=== PATIENT | female | born 1950 | race Caucasian/White ===

== ENCOUNTER 2019-05-07 12:28 | Day surgery (SDC) | payer MEDICARE, OTHER ==
[~2019-05-07] VITALS: Ht 162.6 cm; Wt 105.0 kg
[2019-05-07] MEDS ORDERED: LEVOXYL0.2 MG PO (13:09)
[2019-05-07] MEDS ORDERED: SYNTHROID 0.0.025 MG PO (13:09)
[2019-05-07] MEDS ORDERED: PLAQUENIL 200M200 MG PO (13:10)
[2019-05-07] MEDS ORDERED: B-12 500 MCG PO (13:11)
[2019-05-07] MEDS ORDERED: PREMARIN VAG42.5 GM VG (13:11)
[2019-05-07] MEDS ORDERED: ATIVAN 0.50.5 MG/TAB PO (13:12)
[2019-05-07] MEDS ORDERED: FOLIC ACID 11 MG/TA1 PO (13:12)
[2019-05-07] MEDS ORDERED: ASPIRIN E.C. 8181 MG PO (13:13)
[2019-05-07] MEDS ORDERED: FLEXERIL 1010 MG/TAB PO (13:13)
[2019-05-07] MEDS ORDERED: AZULFIDINE500 MG/TAB PO (13:14)
[2019-05-07] MEDS ORDERED: ZOFRAN 4MG T4 MG/TAB PO (13:15)
[2019-05-07] MEDS ORDERED: CALCIUM 600600 M2 PO (13:15)
[2019-05-07] MEDS ORDERED: CELEBREX 200MG200 MG PO (13:16)
[2019-05-07] MEDS ORDERED: HYZAAR 25 MG-101 TAB PO (13:16)
[2019-05-07] MEDS ORDERED: EFFEXOR XR75 MG/CAP PO (13:17)
[2019-05-07] MEDS ORDERED: CRANBERRY500 M3 PO (13:17)
[2019-05-07] MEDS ORDERED: TOPROL XL 25MG25 MG PO (13:18)
[2019-05-07] MEDS ORDERED: PRIL40 PO (13:19)
[2019-05-07] MEDS ORDERED: VITAMIND3 5000 PO (13:19)
[2019-05-07] MEDS ORDERED: METHOTREXA2.5 MG/TAB PO (13:21)
[2019-05-07] MEDS ORDERED: RT ADVAIR 528 DISKUS IH (13:23)
[2019-05-07] MEDS ORDERED: NORCO 325 MG-7.1 TAB PO (13:24)
[2019-05-07] MEDS ORDERED: PROVENTIL0.09 MG/A1 IH (13:24)
[2019-05-07] MEDS ORDERED: FLONASEALLERGY NS (13:25)
[2019-05-07] MEDS ORDERED: PROBIOTIC FORMU1 CAP PO (13:25)
[2019-05-07] MEDS ORDERED: CIMZIA200 MG/ML SQ (13:26)
[2019-05-07 14:27] VITALS: BP 152/64; PULSE 72; TEMP 99
[2019-05-07 15:35] VITALS: BP 126/48; PULSE 72; TEMP 97.2
--- NOTE | 2019-05-07 15:35 | NUR ---
Patient arrives back to [facility] alert, denies pain or nausea. Complains of having the urge/need to urinate. Patient monitor applied, vitals stable. Patient ambulated to restroom with IV and portable O2 intact without any complications. Patient is able to urinate immediately without any difficulties.
--- NOTE | 2019-05-07 15:45 | NUR ---
Patient ambulates back to [facility] room from restroom with IV and O2 intact and without any complications. Patient monitor reapplied, vitals stable. Patient spouse brought to bedside. Patient given water and crackers.
[2019-05-07 15:50] VITALS: BP 120/56; PULSE 73
[2019-05-07 15:51] VITALS: TEMP 98.6
[2019-05-07] MEDS ORDERED: PYRIDIUM 100MG100 MG PO (15:55)
--- NOTE | 2019-05-07 16:00 | NUR ---
Patient tolerates water and crackers well, denies pain or nausea. Patient reports she is ready to go home whenever. Vitals stable.
[2019-05-07 16:05] VITALS: BP 135/47; PULSE 69
--- NOTE | 2019-05-07 16:15 | NUR ---
Dismissal instructions gone over with patient and patient's spouse. Both verbalize understanding and all questions answered.
--- NOTE | 2019-05-07 16:20 | NUR ---
Patient dismissed to visitor enterance to private vehicle her is driving via wheelchair and without any complications. Patient and spouse leave thanking staff for services.
== END 2019-05-07 16:20 | disposition home or self-care (01) ==
LOC: SDCO 12:28
DX: T83.718A Erosion of other implanted mesh to organ or tissue, initial encounter (principal); T19.1XXA Foreign body in bladder, initial encounter; Z87.891 Personal history of nicotine dependence; M06.9 Rheumatoid arthritis, unspecified; J45.909 Unspecified asthma, uncomplicated; G47.33 Obstructive sleep apnea (adult) (pediatric); E03.9 Hypothyroidism, unspecified; N39.0 Urinary tract infection, site not specified; I10 Essential (primary) hypertension; Z79.899 Other long term (current) drug therapy; N32.81 Overactive bladder; Z88.8 Allergy status to other drugs, medicaments and biological substances; F32.9 Major depressive disorder, single episode, unspecified
CPT/HCPCS: J0690; J1100; J1885; J2405; J2704; J3010; J7120